=== PATIENT | female | born 1955 | race Caucasian/White ===

== ENCOUNTER 2017-12-19 13:34 | Emergency (ER) | payer OTHER ==
[~2017-12-19] VITALS: Ht 157.5 cm; Wt 117.9 kg
[~2017-12-19 13:34] MED LIST: AMLODIPINE BESY10 MG PO; BACTRIM DS TAB1 EACH PO; BUPROPION XL150 MG PO; CEFDINIR300 MG PO; COLACE100 MG PO; FLUOXETINE HCL20 MG PO; GABAPENTIN300 MG PO; LANTUS100 UNITS/ SQ; LISINOPRIL2.5 MG PO; LISINOPRIL40 MG PO; NORCO 10-325 T1 EACH; PRANDIN0.5 MG PO; PREDNISONE10 MG PO; PROPRANOLOL HCL80 MG PO; QUETIAPINE FUMA25 MG PO; TRILIPIX135 MG PO; TYLENOL WITH C1 EACH PO; VENTOLIN HFA18 GM IH; VYTORIN 10-401 EACH PEG; VYTORIN 10-401 EACH PO
[2017-12-19 15:57] LABS: BASOPHILS % 0.5 % (0.0-1.0); EOSINOPHILS # (AUTO) 0.3 (0.0-0.4); EOSINOPHILS % 3.7 % (0.0-6.0); HEMATOCRIT 32.9 % (34.2-44.1); HEMOGLOBIN 10.5 g/dL (12.0-16.0); LYMPHOCYTES # (AUTO) 2.4 (1.0-3.2); LYMPHOCYTES % 31.4 % (18.0-39.1); MEAN CORPUSCULAR HEMOGLOBIN 28.6 pg (28-32); MEAN CORPUSCULAR HGB CONC 31.9 g/dL (31-35); MEAN CORPUSCULAR VOLUME 89.6 fL (81-99); MONOCYTES # (AUTO) 0.7 (0.2-0.8); MONOCYTES % 9.2 % (4.4-11.3); NEUTROPHILS # (AUTO) 4.1 (2.1-6.9); NEUTROPHILS % 54.1 % (38.7-80.0); PLATELET COUNT 333 x10e3/uL (140-360); RED BLOOD COUNT 3.67 x10e6/uL (3.6-5.1); RED CELL DISTRIBUTION WIDTH 12.5 % (11.7-14.4)
[2017-12-19 16:06] LABS: ALBUMIN 3.8 g/dL (3.5-5.0); ANION GAP 19.9 mmol/L (8-16); CALCIUM 10.1 mg/dL (8.4-10.2); CREATININE, SERUM 2.15 mg/dL (0.57-1.11); POTASSIUM 4.9 mmol/L (3.5-5.1)
[2017-12-19 16:47] LABS: BILIRUBIN,URINE NEGATIVE (NEGATIVE); CLARITY,URINE SL CLOUDY (CLEAR); COLOR,URINE YELLOW (YELLOW); KETONES,URINE NEGATIVE (NEGATIVE); LEUKOCYTE ESTERASE ,URINE TRACE (NEGATIVE); NITRITE,URINE NEGATIVE (NEGATIVE); PROTEIN,URINE DIPSTICK NEGATIVE (NEGATIVE); URINE UROBILINOGEN 0.2 mg/dL (0.2 - 1)
[2017-12-19 17:01] LABS: EPITHELIAL CELLS,URINE FEW /LPF; WBC,URINE (MAN) 0-5 /HPF (0-5)
[2017-12-19] MEDS ORDERED: ALLOPURINOL100 MG PO (17:51)
[2017-12-19] MEDS ORDERED: LASIX40 MG PO (17:51)
[2017-12-19] MEDS ORDERED: LEVEMIR100 UNIT/1 SC (17:51)
[2017-12-19 18:07] LABS: ABG HCO3 33 mmol/L (23-28); ABG PCO2 53 mmHg (41-51); ABG PH 7.41 (7.31-7.41); ABG PO2 70 mmHg (80-105)
[2017-12-19 19:22] VITALS: BP 110/74
[2017-12-19] MEDS ORDERED: INDERAL LA80 MG PO (19:22)
== END 2017-12-19 19:28 | disposition home or self-care (01) ==
LOC: ER 13:34
DX: R41.82 Altered mental status, unspecified (principal); J96.12 Chronic respiratory failure with hypercapnia; I10 Essential (primary) hypertension; J44.9 Chronic obstructive pulmonary disease, unspecified; I50.9 Heart failure, unspecified; Z99.81 Dependence on supplemental oxygen
CPT/HCPCS: 36415; 80053; 81001; 82140; 82805; 84443; 85025; 99284

== ENCOUNTER 2017-12-20 08:36 | Emergency (ER) | payer OTHER ==
[~2017-12-20] VITALS: Ht 157.5 cm; Wt 117.9 kg
[~2017-12-20 08:36] MED LIST changes: +ALLOPURINOL100 MG PO; +INDERAL LA80 MG PO; +LASIX40 MG PO; +LEVEMIR100 UNIT/1 SC
[2017-12-20] MEDS ORDERED: DIAZEPAM 2 MG TAB PO ONE (09:30)
--- NOTE | 2017-12-20 10:04 | Diagnostic Imaging Report ---
EXAMINATION: Head CT HISTORY: Slurred speech, hallucinations for the last 2 days COMPARISON: Head CT on 09/16/2016 TECHNIQUE: Multidetector axial images were obtained without contrast from the foramen magnum to the vertex . The images were reconstructed using brain and bone algorithms. Thin section brain images were reformatted into coronal and sagittal planes. Intravenous contrast: None. Motion/streaking artifact limits the evaluation of the skull base and posterior cranial fossa. FINDINGS: Parenchyma: 1. Persistent mild chronic microvascular ischemic changes. 2. No mass or hemorrhage. No CT evidence of acute territorial vascular insult. Extra-axial spaces:No abnormal density. No extra-axial fluid collections and no subarachnoid hemorrhage. Brain volume: Normal for age. Ventricles: No hydrocephalus or displacement. Arteries: No density suggestive of thrombus. Dural sinuses: No abnormal density. Extra-axial spaces: No abnormal density. Foramen magnum: No mass, Chiari malformation, or basilar invagination. Sella: No obvious mass. Paranasal/mastoid sinuses: Imaged portions unremarkable. Skull/Scalp: No lytic or blastic lesions. No fractures. Partially visualized postoperative changes from right parotid gland previously seen mass resection. IMPRESSION: 1. No acute intracranial hemorrhage or cortical infarcts. 2. Unchanged mild chronic microvascular ischemic changes compared to head CT on 09/15/2016. Signed by: Dr. Judy Farfan M.D. on 12/20/2017 10:00 AM
[2017-12-20 10:35] VITALS: BP 110/62
== END 2017-12-20 11:02 | disposition home or self-care (01) ==
LOC: ER 08:36
DX: F41.1 Generalized anxiety disorder (principal); R44.3 Hallucinations, unspecified; I10 Essential (primary) hypertension; E11.9 Type 2 diabetes mellitus without complications; J44.9 Chronic obstructive pulmonary disease, unspecified; F32.9 Major depressive disorder, single episode, unspecified; Z85.89 Personal history of malignant neoplasm of other organs and systems
CPT/HCPCS: 70450; 99283

== ENCOUNTER 2017-12-23 15:00 | Inpatient (IN) | payer OTHER ==
[~2017-12-23] VITALS: Ht 157.5 cm; Wt 98.7 kg
[2017-12-23 17:07] LABS: BASOPHILS % 0.5 % (0.0-1.0); EOSINOPHILS # (AUTO) 0.1 (0.0-0.4); EOSINOPHILS % 1.4 % (0.0-6.0); HEMATOCRIT 30.7 % (34.2-44.1); LYMPHOCYTES # (AUTO) 1.3 (1.0-3.2); LYMPHOCYTES % 14.6 % (18.0-39.1); MEAN CORPUSCULAR HEMOGLOBIN 29.2 pg (28-32); MEAN CORPUSCULAR HGB CONC 32.6 g/dL (31-35); MEAN CORPUSCULAR VOLUME 89.8 fL (81-99); MONOCYTES # (AUTO) 0.6 (0.2-0.8); MONOCYTES % 6.7 % (4.4-11.3); NEUTROPHILS # (AUTO) 6.5 (2.1-6.9); NEUTROPHILS % 76.1 % (38.7-80.0); PLATELET COUNT 279 x10e3/uL (140-360); RED BLOOD COUNT 3.42 x10e6/uL (3.6-5.1)
[2017-12-23 17:11] LABS: INR 1.06
[2017-12-23 17:18] LABS: ALBUMIN 3.6 g/dL (3.5-5.0); ALBUMIN/GLOBULIN RATIO 1.1 (0.8-2.0); ANION GAP 13.7 mmol/L (8-16); CALCIUM 9.7 mg/dL (8.4-10.2); CREATININE, SERUM 2.34 mg/dL (0.57-1.11); POTASSIUM 4.7 mmol/L (3.5-5.1)
[2017-12-23 17:25] LABS: CREATINE KINASE MB 1.2 ng/mL (0-5.0)
[2017-12-23] MEDS ORDERED: ONDANSETRON HCL INJ 2 MG/ML VIAL IV PRN (17:30)
[2017-12-23] MEDS ORDERED: DIAZEPAM5 MG PO (18:13)
[2017-12-23] MEDS ORDERED: TYLENOL WITH C1 EACH PO (18:13)
[2017-12-23] MEDS ORDERED: magnesium PO (18:13)
--- NOTE | 2017-12-23 20:52 | Diagnostic Imaging Report ---
PROCEDURE: A single AP view of the chest. COMPARISON: None. INDICATIONS: AMS. HALLUCINATIONS FINDINGS: Lines/tubes: None. Lungs: The lungs are well inflated and clear. There is no evidence of pneumonia or pulmonary edema. Pleura: There is no pleural effusion or pneumothorax. Heart and mediastinum: Mild enlarged cardiac silhouette, which may be partly due to AP projection. Pulmonary vasculature is normal. Bones: No acute bony abnormality. IMPRESSION: 1. No acute cardiopulmonary abnormalities. Sheldon Boyd M.D. Dictated by: Sheldon Boyd M.D. on 12/23/2017 at 18:50 Electronically approved by: Sheldon Boyd M.D. on 12/23/2017 at 18:50
[2017-12-23 21:32] VITALS: BP 137/62
[2017-12-23] MEDS ORDERED: DEXTROSE 50% SYRINGE 50 ML IV PRN (22:00)
[2017-12-23] MEDS ORDERED: ALLOPURINOL 100 MG TAB PO PRN (22:00)
[2017-12-23] MEDS ORDERED: ACETAMINOPHEN/CODEINE 300MG - 30MG TAB PO PRN (22:00)
[2017-12-23] MEDS ORDERED: ALBUTEROL SULFATE HFA 8GM INHALATION AEROSOL INH PRN (22:00)
[2017-12-23] MEDS ORDERED: FUROSEMIDE 40 MG TAB PO PRN (22:00)
[2017-12-23] MEDS ORDERED: DIAZEPAM 5 MG TAB PO PRN (22:00)
[2017-12-23] MEDS ORDERED: PREDNISONE 10 MG TAB PO PRN (22:00)
[2017-12-23] MEDS: BUPROPION HCL 150 MG TABCR PO SCH (22:30)
[2017-12-23 23:56] VITALS: BP 137/62
[2017-12-23 23:59] VITALS: BP 105/63
[2017-12-24 02:35] VITALS: BP 105/63
[2017-12-24 04:00] VITALS: BP 139/71
[2017-12-24] MEDS ORDERED: INSULIN REGULAR, HUMAN 100 UNIT/1 ML 3ML VIAL SQ SCH (07:30)
[2017-12-24 07:45] VITALS: BP 118/57
[2017-12-24] MEDS ORDERED: DIAZEPAM 2 MG TAB PO PRN (08:30)
[2017-12-24] MEDS: BUPROPION HCL 150 MG TABCR PO SCH (08:43)
[2017-12-24] MEDS: FLUOXETINE HCL 20 MG CAP PO SCH (08:43)
[2017-12-24] MEDS ORDERED: AMLODIPINE BESYLATE 10 MG TAB PO SCH (09:00)
[2017-12-24] MEDS ORDERED: MAGNESIUM 1000 MG PO SCH (09:00)
[2017-12-24] MEDS ORDERED: NON-FORMULARY MEDICATION (Ezetimibe/Simvastatin (Vytorin 10-40 Mg Tablet) 1 TAB) PO SCH (09:00)
[2017-12-24] MEDS ORDERED: LISINOPRIL 2.5 MG TAB PO SCH (09:00)
[2017-12-24] MEDS ORDERED: QUETIAPINE FUMARATE 25 MG TAB PO SCH (09:00)
[2017-12-24] MEDS: PROPRANOLOL HCL 40 MG TAB PO SCH (09:07)
[2017-12-24] MEDS: MAGNESIUM OXIDE 400 MG TAB PO SCH (09:08)
[2017-12-24 09:40] VITALS: BP 118/57
[2017-12-24] MEDS ORDERED: DEXTROSE 50% SYRINGE 50 ML IV PRN (10:00)
[2017-12-24] MEDS: ALLOPURINOL 100 MG TAB PO SCH ×2 (10:36→16:37)
[2017-12-24 10:38] LABS: ABG HCO3 32 mmol/L (23-28); ABG PCO2 50 mmHg (41-51); ABG PH 7.41 (7.31-7.41); ABG PO2 92 mmHg (80-105)
--- NOTE | 2017-12-24 11:08 | History and Physical ---
PRIMARY CARE PHYSICIAN: Dr. Andres Josue ROCKET ENGINE TESTER: Dr. Jonah Cox and Dr. Gutierrez. CHIEF COMPLAINT: Altered mental status, multiple ER visits. HISTORY: This is a 62-year-old female who approximately a week to 2 ago patient apparently fell and hit her right knee. No obvious fractures but since then the patient having increase in altered mental status, hallucinations, usually visual, worse in the morning and then subsequently throughout the day. Patient also had delusions as well with increasingly more paranoia. The patient has history of renal cell cancer with metastases. She had left nephrectomy and then subsequent right partial nephrectomy and she also had neck and facial metastases that was previously treated with surgical intervention and subsequent chemotherapy. The patient was well until approximately 1 to 2 weeks ago after she fell and hit her right knee. The patient is otherwise stable. Patient is now admitted through the emergency room again with more confusion, hallucinations and not recognizing family member. The patient was started on Keflex as an outpatient approximately 2 days ago. She did not improve. PAST MEDICAL HISTORY: Renal cell cancer with metastasis. She had left nephrectomy and right partial nephrectomy and neck and facial metastasis post surgical intervention. Diabetes type 2, hypertension, morbid obesity, obstructive sleep apnea, anxiety disorder and depression. PAST SURGICAL HISTORY: Left nephrectomy and right partial nephrectomy. Right facial gland, submandibular gland, facial, neck area metastasis, status post treatment. SOCIAL HISTORY: Patient lives at home with her family.. She does not smoke or use alcohol or recreational drugs. ALLERGIES: MULTIPLE INCLUDING LEVAQUIN, NONSTEROIDALS, ANTI-INFLAMMATORIES, IODINE CONTRAST, ADHESIVE TAPE. HOME MEDICATIONS: Tylenol No. 3 p.r.n., , allopurinol, Norvasc, bupropion SL, Diazepam, Vytorin, Prozac, Lasix, Levemir insulin, lisinopril, prednisone p.r.n., propranolol, Seroquel. PHYSICAL EXAMINATION: GENERAL: The patient is in no acute distress. She is awake. VITAL SIGNS: Temperature is 98. Blood pressure 113/61. Pulse rate 71. Respirations 21. HEENT: Normocephalic, atraumatic and anicteric. NECK: Supple grossly. PULMONARY: Diminished breath sounds bilaterally without any wheezing or rales. CARDIOVASCULAR: S1 and S2. Regular rate and rhythm. ABDOMEN: Soft, obese, nontender, nondistended. EXTREMITIES: No gross cyanosis or edema. NEUROLOGIC: Very confused. Moving all extremities. LABORATORY: WBC is 5.5. Hemoglobin 10. Hematocrit 30.7 and platelets 279,000. Chemistries: Sodium is 138. Potassium 4.7, chloride 99, bicarb 30. BUN is 36, creatinine 2.3. Glucose is 246. Coagulation is unremarkable. IMAGING: Chest x-ray. Previously CT scan of brain otherwise unremarkable. IMPRESSION: 1. Acute psychosis, etiology unclear. This would be combination of patient's history of renal cell cancer versus metabolic disorder versus infection or cranial etiology. 2. Baseline multiple problems including renal cell cancer with history of left radical nephrectomy and right partial nephrectomy with chronic kidney disease. 3. Diabetes type 2 on insulin therapy. 4. Hypertension. 5. Obesity with obstructive sleep apnea. 6. Osteoarthritis. PLAN: Consultation with Dr. Gutierrez, neurology. Dr. Jonah Cox for pulmonology. ABG for ruling out CO2 retention. Home medication adjustment. Fall precautions. Imaging was ordered including MRI of the brain, abdomen and pelvis. Will continue with supportive measures. Insulin sliding scale coverage. Blood pressure control. Oxygen support. Will continue to work up the patient and will admit the patient for workup and treatment. This is his 3rd admission through the emergency room in the past 1-2 weeks. Job#: [id number] SERGE
[2017-12-24 11:17] VITALS: BP 128/61
[2017-12-24] MEDS ORDERED: ALBUTEROL SULF 0.083% NEB SOLN 3 ML NEB NEB PRN (11:45)
[2017-12-24] MEDS ORDERED: LORAZEPAM INJ 2 MG/ML VIAL IV ONE (13:00)
--- NOTE | 2017-12-24 13:19 | Diagnostic Imaging Report ---
EXAM: MRI of the abdomen without contrast. INDICATION: Altered mental status. Renal cancer. COMPARISON: 01/02/2010 MRIs not available for comparison in PACS. TECHNIQUE: Multiplanar and multisequence imaging was performed of the abdomen. T1 and T2-weighted images were obtained without contrast. Diffusion weighted imaging also performed. Discussion: Examination markedly limited due to image limitation by breathing motion artifact. Patient was not able to breath-hold. LOWER THORAX: Unremarkable. HEPATOBILIARY: Signal drop out of the hepatic parenchyma on the T1-weighted out of phase scans suggestive of steatosis. No definite focal hepatic lesions. No biliary ductal dilation. GALLBLADDER: No radio-opaque stones or sludge. No wall thickening. SPLEEN: No splenomegaly. PANCREAS: No focal masses or ductal dilatation. ADRENALS: No adrenal nodules KIDNEYS/URETERS: Redemonstration of status post left nephrectomy without definite mass in the nephrectomy bed. 2.0 cm T2 hyperintense lesion in the lateral interpolar region of the right kidney on image 23 series 6 is of indeterminate etiology. A 5 mm T2 hyperintense lesion in the posterior lower pole of the right kidney on image 27 series 6 is likely to represent a small cyst. GI TRACT: No abnormal distention, wall thickening, or evidence of bowel obstruction. Appendix is normal. LYMPH NODES: No lymphadenopathy. VESSELS: Unremarkable. PERITONEUM / RETROPERITONEUM: No free air or fluid. BONES: Unremarkable. SOFT TISSUES: Unremarkable. Impression: Examination limited due to extensive breathing motion artifact and lack of intravenous contrast. Status post left nephrectomy. No evidence of recurrence within limitations. Indeterminate right renal lesions. Recommend repeat examination once patient's mental status improves and she is able to breath-hold. Signed by: Dr. Osmany Bartlett M.D. on 12/24/2017 1:16 PM
[2017-12-24] MEDS: INSULIN LISPRO 100 UNIT/1 ML 3ML VIAL SQ SCH ×3 (13:54→21:00)
[2017-12-24] MEDS: CEFEPIME HCL 1 GM VIAL IV SCH ×2 (13:54→22:15)
--- NOTE | 2017-12-24 14:09 | Consultation ---
DATE OF CONSULTATION: December 24, 2017 PULMONARY/CRITICAL CARE CONSULTATION REFERRING PHYSICIAN: Dr. Andres Josue. CHIEF COMPLAINT: Metabolic encephalopathy in a patient with COPD and pulmonary hypertension. HISTORY OF PRESENT ILLNESS: The patient is a 62-year-old woman. She has a history of COPD. She uses oxygen at home. She has a nebulizer that she uses intermittently. She also has history of renal cell carcinoma. She had a nephrectomy performed at [facility] by Dr. Sheppard. She subsequently developed a metastasis in a parotid gland and required resection at [facility] (formerly [facility] She has not received any chemotherapy or radiation. Approximately 2 weeks ago she became unsteady and fell. She hit her knee and went to the emergency department. She did receive some nonsteroidal medicines and prednisone, but continued to be confused over the next several weeks. She went back to the emergency department and received some neuroleptics with no benefit. She now returns with worsening confusion and delusions. She is not complaining of fever. She does not have chest pain or dyspnea. She does not have any change in her chronic cough. PAST SURGICAL HISTORY: 1. Status post left nephrectomy. 2. Status post partial right nephrectomy. 3. Status post resection of a parotid gland for metastatic renal cell carcinoma. PAST MEDICAL HISTORY: 1. Renal cell carcinoma as noted above. 2. COPD. 3. Diabetes. 4. Hypertension. 5. Possible obstructive sleep apnea, although the patient has never had a sleep study. FAMILY HISTORY: Noncontributory. SOCIAL HISTORY: The patient is not actively smoking. She is not a drinker. She lives with family. ALLERGIES: LEVAQUIN, CONTRAST DYE. REVIEW OF SYSTEMS: The patient does not have any headache or fevers. She does not have any neck pain. She is not having chest pain. She does have some dyspnea at baseline which is unchanged. She has a mild cough. She has no nausea or vomiting. She has no leg edema. She is not having any cyanosis or clubbing. She does not report any leg swelling. She has no neurological complaints. PHYSICAL EXAMINATION: VITAL SIGNS: The patient is afebrile. The blood pressure is 128/61 and saturation is 96% on 2 liters. Her pulse is 83. HEENT: Shows no facial swelling or erythema. The oropharynx is normal. LYMPHATIC: Examination shows no submandibular, cervical or supraclavicular adenopathy. CARDIAC: Exam reveals a regular rate and rhythm with normal S1 and S2. There are no murmurs or rubs. LUNGS: Shows clear breath sounds bilaterally. There is no wheezing. ABDOMEN: Is soft and nontender. There is no rebound or guarding. EXTREMITIES: Examination shows no leg edema or calf tenderness. There is no cyanosis or clubbing. NEUROLOGIC: Exam shows no focal abnormalities. SKIN: Examination shows no rashes. LABORATORY DATA: The BUN to creatinine ratio is 36 to 2.34. The other electrolytes are within normal limits. Hemoglobin is 10. Blood gas is 7.41, 50, 92 and 32. RADIOGRAPHIC DATA: The chest x-ray shows no active disease. A CT scan from 2016 showed enlarged pulmonary artery suggestive of possible pulmonary artery hypertension. IMPRESSION: 1. Metabolic encephalopathy. 2. Chronic obstructive pulmonary disease with chronic CO2 retention. 3. Type 2 pulmonary artery hypertension. 4. Possible obstructive sleep apnea. 5. Chronic renal failure stage 3 to 4. 6. History of metastatic renal cell carcinoma. PLAN: 1. The patient will continue to receive oxygen. 2. Bronchodilators as needed. 3. Echocardiogram to evaluate for pulmonary hypertension. 4. Ventilation perfusion scan to evaluate for chronic pulmonary emboli. 5. Evaluation for sleep apnea as an outpatient. Job#: [id number] GH
--- NOTE | 2017-12-24 17:12 | Consultation ---
DATE OF CONSULTATION: December 24, 2017 NEUROLOGY CONSULTATION HISTORY OF PRESENT ILLNESS: Mrs. Awan is a 62-year-old woman with an extensive past medical history, admitted to [facility] on December 23, 2017 with a 2-week history of progressively worsening confusion, visual hallucinations, and delirium. History is obtained from the patient's who is at the bedside secondary to Mrs. Awan being encephalopathic. Approximately 2 weeks ago, the patient fell forward landing on her knees. The patient's states Mrs. Awan did not report hitting her head when she fell. Two days after the fall, the patient consented to her taking her to a [facility] emergency center for further evaluation of bilateral knee pain. All diagnostic studies performed at the [facility] emergency center were reportedly normal. Mrs. Awan was discharged to the emergency center with Tylenol for pain and a 4 to 5 day course of oral steroids. Once she began taking the steroids, Mrs. Awan had worsening confusion, visual hallucinations, and delirium. Her reports she spoke to relatives, living and , who were not present. She became verbally aggressive towards her children and grandchildren. She saw several kittens lying in near her dog and told various family members her dog was "kitten sitting." Her has observed her to chew on her blanket. She has walked to the entertainment center in their living room to chop an onion. Lastly, the patient's reports she has not slept well. When asked if these symptoms seem to improve once the patient completed the 4 or 5 day course of steroids, patient's reports her symptoms have gradually worsened, not improved. Mrs. Awan's reports she has experienced similar symptoms previously, usually associated with acute kidney injury, hyponatremia or hyperkalemia. For approximately one and a half weeks, the patient's took her to various emergency centers for evaluation of her symptoms. Blood work and CT scans were performed, all reportedly normal. When the test results returned as normal, the patient would be discharged from the emergency center. On the day of admission, the patient was taken to her primary care physician, Dr. Josue, who recommended the patient be admitted to this hospital for further evaluation and treatment. REVIEW OF SYSTEMS: Nonproductive cough, intermittent nausea, intermittent diarrhea and constipation, urinary retention, numbness of the feet, impaired balance and gait, confusion, visual hallucinations, and delirium. Otherwise, a 12-point review of systems is negative. PAST MEDICAL HISTORY: Hypertension, hyperlipidemia, diabetes mellitus type 2, emphysema, possible history of thyroid disease, osteoarthritis, chronic kidney disease, mixed depression/anxiety disorder, questionable bipolar disorder, migraines, one prior seizure secondary to alcohol withdrawal, breast cancer, renal cancer with metastases. PAST SURGICAL HISTORY: Left nephrectomy, right partial nephrectomy, right parotid gland resection, bilateral hip replacements, left breast lumpectomy, umbilical hernia repair. PAST HOSPITALIZATIONS: Surgeries/procedures as listed, childbirth times 3, multiple other hospitalizations. FAMILY HISTORY: The patient's paternal and maternal grandparents are . Their medical histories are unknown. The patient patient's father is . He had colon cancer and emphysema. The patient's mother is . Her medical history is unknown. Mrs. Awan had one brother who is from a motor vehicle accident. He had a history of bipolar disorder and substance abuse. Mrs. Awan has multiple half siblings, several of whom have bipolar disorder or other psychiatric diagnoses. The patient had six children, three boys and three girls. The youngest son at the age of 7 years in a motor vehicle accident. The remaining five children are alive. All have "psychiatric issues." SOCIAL HISTORY: Patient is . She graduated high school. The patient is a housewife. The patient's endorses a prior history of tobacco use. She smoked 2-1/2 packs per day for approximately 40 years. She quit smoking about 10 years ago. Patient does have a history of alcohol abuse. At present, she is a "social drinker." She drinks approximately 2 glasses of wine most days of the week. HOME MEDICATIONS: Acetaminophen with codeine 300 mg by mouth every 4 hours as needed for pain, Ventolin HFA 2 puffs inhaled every 4 hours as needed for shortness breath, allopurinol 100 mg by mouth twice daily as needed, Norvasc 10 mg by mouth daily, bupropion 150 mg by mouth twice daily, diazepam 5 mg by mouth daily as needed, Vytorin 10-40 mg one tablet by mouth daily, fluoxetine 40 mg by mouth daily, Lasix 40 mg by mouth as needed, Levemir 30 units subcutaneously at bedtime daily, lisinopril 2.5 mg by mouth daily, prednisone 10 mg by mouth daily as needed, Inderal LA 40 mg by mouth daily, Seroquel 75 mg by mouth daily, magnesium 1,000 mg by mouth daily. ALLERGIES: NSAIDS, POSSIBLY BARIUM, LEVOFLOXACIN. NO KNOWN FOOD ALLERGIES. MRS. AWAN HAS A SENSITIVITY TO ADHESIVE TAPE. PATIENT DOES HAVE A DOCUMENTED ALLERGY TO IODINE. PHYSICAL EXAMINATION VITAL SIGNS: Height 62 inches, weight 216 pounds, BMI 39.5 kg per meter squared. Blood pressure 128/61 mmHg, pulse 83 beats per minute, respiratory rate 20 breaths per minute, oxygen saturation 96% on 2 liters by nasal cannula. GENERAL: The patient is drowsy but arouses to verbal stimuli. Does not appear distressed. Morbidly obese. HEENT: Normocephalic, atraumatic. Pupils are equal, round and reactive to light. Moist mucous membranes. NECK: Supple. No appreciable thyromegaly. No appreciable carotid bruits. CARDIOVASCULAR: S1, S2, regular rate and rhythm. No murmurs, rubs, or gallops. RESPIRATORY: Clear to auscultation bilaterally. No wheezes, rhonchi or rales. EXTREMITIES: The skin is warm and dry. No clubbing, cyanosis, or edema. The posterior tibial and dorsalis pedis pulses are 1+ and symmetric. SKIN: No rashes or lesions. NEUROLOGIC Memory/Attention: The patient is drowsy, but arouses to verbal stimuli. She is oriented to person and city only. Cranial Nerves: Cranial nerve I-not tested. Cranial nerve II, III, IV, and -pupils are equal and round, react briskly to light (from 4 mm to 2 mm). Extraocular movements intact. No nystagmus. Cranial nerve V-sensation to light touch is grossly intact in the bilateral V1 through V3 distributions. Strength of the temporalis and masseter muscles is within normal limits. Cranial nerve VII-the face is symmetric as are all facial movements. Strength is within normal limits. Cranial nerve VIII-hearing is grossly intact to finger rub bilaterally. Cranial nerve IX, X-the soft palate elevates equally and symmetrically. Cranial nerve XI-normal strength of the bilateral sternocleidomastoid and trapezius muscles. Cranial nerve XII-the tongue protrudes midline and moves symmetrically from side to side. Strength: Bulk is normal. Patient moves all extremities equally and symmetrically. Tone is normal. DTRs: Deep tendon reflexes are 1+ and symmetric at the triceps, biceps, brachioradialis, and patellas. Deep tendon reflexes are absent and symmetric at the Achilles. Plantar responses are flexor bilaterally. Sensation: Sensation is grossly intact to light touch in both arms and both legs. Cerebellar: Unable to assess secondary to encephalopathy. Gait: Deferred. Speech: Spontaneous speech is dysarthric without aphasia. Unable to assess repetition secondary to encephalopathy. Involuntary Movements: None. Pronator Drift: As per motor exam. LABORATORY DATA: Sodium 138, potassium 4.7, chloride 99, carbon dioxide 30, anion gap 13.7. BUN 36, creatinine 2.34. Estimated GFR 21. BUN to creatinine ratio 15. Glucose 246, calcium 9.7, total bilirubin 0.6, AST 19, ALT 17, alkaline phosphatase 78, total protein 6.9, albumin 3.6, globulin 3.3. Albumin to globulin ratio 1.1. Creatinine kinase 166, CK-MB 1.20. Troponin I 0.010. B-natriuretic peptide 87.5. Magnesium 2.2. CBC with differential and platelets reveals a white blood cell count of 8.55 with 76.1% neutrophils, 14.6% lymphocytes, 6.7% monocytes, 1.4% eosinophils and 0.5% basophils. Hemoglobin and hematocrit are 10.0 and 30.7, respectively. Platelet count 279. PT 13.0, INR 1.06, PTT 26.0. Arterial blood gas reveals pH of 7.41, pCO2 50, pO2 of 92, bicarbonate of 32, oxygen saturation of 97.0, base excess of 7.0, FIO2 of 28%. DIAGNOSTIC STUDIES: Electrocardiogram 12/23/2017: Normal sinus rhythm at 83 beats per minute. Chest x-ray 12/23/2017: No acute cardiopulmonary abnormalities. MRI of the abdomen without contrast 12/24/2017: Examination limited due to extensive breathing motion artifact and lack of intravenous contrast. Status post left nephrectomy. No evidence of recurrence within limitations. Indeterminate right renal lesions. Recommend repeat examination once patient's mental status improves and she is able to breath hold. ASSESSMENT AND PLAN: Mrs. Awan is a 62-year-old woman with an extensive past medical history admitted with a 2-week history of altered mentation, visual hallucinations and delusions. On neurological examination, the patient is drowsy. She is oriented to person and city only. Otherwise, there are no focal findings on neurological examination. The patient's laboratory data and other diagnostic studies have been reviewed and are documented above. The etiology of the patient's symptoms is undetermined. Potential causes could be acute kidney injury, underlying infection, metastatic disease to the brain, seizures, or medication-induced psychosis (i.e. Prednisone). RECOMMENDATIONS 1. Additional laboratory data will be ordered as follows: Thyroid function tests, vitamin B1 level, vitamin B12 level, RPR, ammonia, blood cultures, urinalysis with urine culture, urine drug screen, blood alcohol level. 2. An MRI of the brain without contrast has been ordered and is pending. The patient will require sedation to complete this study. 3. A routine EEG will be ordered to evaluate for underlying seizure activity. 4. Continue the patient's home psychotropic medications. 5. Limit the use of sedative/hypnotic and pain medications as these will alter the patient's sensorium. 6. Utilize environmental cues to limit delirium. 7. Defer treatment of the remaining medical comorbidities to the primary and other services. Thank you for this consultation. I will continue to follow this patient while she remains in the hospital. Time spent: 70 minutes. Job#: [id number] JESSIE SHAH
--- NOTE | 2017-12-24 17:42 | Diagnostic Imaging Report ---
Ventilation/perfusion lung scan Clinical Information: 62 F with altered metal status and chest pain. Comparison: Chest radiograph 12/23/2017 Discussion: Xenon-133 gas 19 mCi was administered via inhalation. Dynamic images of the lungs in the posterior projection were obtained through single breath, equilibrium, and washout phases. Distribution of tracer activity is irregular throughout the lungs. There are no segmental ventilatory defects. Washout of tracer is diffusely delayed with no air trapping. Perfusion images of the lungs were obtained in multiple projections following intravenous administration of approximately 6 mCi of Tc-99m MAA. Distribution of tracer is irregular throughout the lungs. The contours of the lungs are well demarcated. There are no segmental perfusion defects of any size. The cardiomediastinal silhouette is enlarged. Images of the head and kidneys show no intraparenchymal accumulation of tracer. Impression: 1. Scan findings represent a VERY LOW probability for acute pulmonary embolic disease based on the PIOPED II criteria. Scan evidence of obstructive lung disease. 2, Enlarged cardiac silhouette. 3. No [id number] shunt. Signed by: Dr. Alexa Romano M.D. on 12/24/2017 5:39 PM
[2017-12-24 19:55] LABS: THYROID STIMULATING HORMONE 2.014 uIU/mL (0.350-4.940)
[2017-12-24] MEDS: INSULIN DETEMIR 100 UNIT/ML PEN SQ SCH (21:00)
[2017-12-24] MEDS ORDERED: SIMVASTATIN 40 MG TAB PO SCH (21:00)
[2017-12-24] MEDS ORDERED: EZETIMIBE 10 MG TAB PO SCH (21:00)
[2017-12-24] MEDS ORDERED: NON-FORMULARY MEDICATION (Insulin Detemir (Levemir) 30 UNITS) SC SCH (21:00)
[2017-12-24] MEDS: QUETIAPINE FUMARATE 25 MG TAB PO SCH (22:15)
[2017-12-24 22:40] VITALS: BP 113/70
[2017-12-25] VITALS (7 sets, daily range): BP systolic 113–147; BP diastolic 63–70
[2017-12-25] MEDS: PROPRANOLOL HCL 40 MG TAB PO SCH (08:30)
[2017-12-25] MEDS: ALLOPURINOL 100 MG TAB PO SCH ×2 (08:30→17:15)
[2017-12-25] MEDS: MAGNESIUM OXIDE 400 MG TAB PO SCH (08:30)
[2017-12-25] MEDS: INSULIN LISPRO 100 UNIT/1 ML 3ML VIAL SQ SCH ×4 (08:30→20:53)
[2017-12-25] MEDS: FLUOXETINE HCL 20 MG CAP PO SCH (08:30)
[2017-12-25 08:58] LABS: AMPHETAMINES SCREEN,URINE NEGATIVE (NEGATIVE); BENZODIAZEPINES SCREEN,URINE POSITIVE (NEGATIVE); PHENCYCLIDINE SCREEN,URINE NEGATIVE (NEGATIVE)
[2017-12-25 10:26] LABS: CLARITY,URINE SL CLOUDY (CLEAR); COLOR,URINE YELLOW (YELLOW)
[2017-12-25 10:27] LABS: BILIRUBIN,URINE 2+ (NEGATIVE); KETONES,URINE 1+ (NEGATIVE); LEUKOCYTE ESTERASE ,URINE NEGATIVE (NEGATIVE); NITRITE,URINE NEGATIVE (NEGATIVE); PROTEIN,URINE DIPSTICK TRACE (NEGATIVE); URINE UROBILINOGEN 0.2 mg/dL (0.2 - 1)
[2017-12-25 10:31] LABS: EPITHELIAL CELLS,URINE FEW /LPF
[2017-12-25] MEDS: CEFEPIME HCL 1 GM VIAL IV SCH ×2 (10:44→22:46)
[2017-12-25] MEDS: ALBUTEROL SULF 0.083% NEB SOLN 3 ML NEB NEB SCH (20:45)
[2017-12-25] MEDS: INSULIN DETEMIR 100 UNIT/ML PEN SQ SCH (20:53)
[2017-12-25] MEDS: QUETIAPINE FUMARATE 25 MG TAB PO SCH (22:46)
[2017-12-26] VITALS (8 sets, daily range): BP systolic 113–144; BP diastolic 55–67
[2017-12-26] MEDS: ALBUTEROL SULF 0.083% NEB SOLN 3 ML NEB NEB SCH ×4 (01:01→19:55)
[2017-12-26 04:24] LABS: BASOPHILS # (AUTO) 0.1 (0.0-0.1); BASOPHILS % 0.8 % (0.0-1.0); EOSINOPHILS # (AUTO) 0.2 (0.0-0.4); EOSINOPHILS % 2.8 % (0.0-6.0); HEMATOCRIT 31.6 % (34.2-44.1); HEMOGLOBIN 9.6 g/dL (12.0-16.0); LYMPHOCYTES # (AUTO) 2.1 (1.0-3.2); LYMPHOCYTES % 27.7 % (18.0-39.1); MEAN CORPUSCULAR HEMOGLOBIN 28.4 pg (28-32); MEAN CORPUSCULAR HGB CONC 30.4 g/dL (31-35); MEAN CORPUSCULAR VOLUME 93.5 fL (81-99); MONOCYTES # (AUTO) 0.9 (0.2-0.8); MONOCYTES % 11.3 % (4.4-11.3); NEUTROPHILS # (AUTO) 4.4 (2.1-6.9); NEUTROPHILS % 56.9 % (38.7-80.0); PLATELET COUNT 228 x10e3/uL (140-360); RED BLOOD COUNT 3.38 x10e6/uL (3.6-5.1); RED CELL DISTRIBUTION WIDTH 13.1 % (11.7-14.4)
[2017-12-26 04:50] LABS: ANION GAP 15.4 mmol/L (8-16); CALCIUM 9.4 mg/dL (8.4-10.2); CREATININE, SERUM 2.03 mg/dL (0.57-1.11); POTASSIUM 4.4 mmol/L (3.5-5.1)
[2017-12-26] MEDS: INSULIN LISPRO 100 UNIT/1 ML 3ML VIAL SQ SCH ×4 (07:30→21:00)
[2017-12-26] MEDS: PROPRANOLOL HCL 40 MG TAB PO SCH (09:00)
[2017-12-26] MEDS: ALLOPURINOL 100 MG TAB PO SCH ×2 (09:00→17:11)
[2017-12-26] MEDS: MAGNESIUM OXIDE 400 MG TAB PO SCH (09:00)
[2017-12-26] MEDS: FLUOXETINE HCL 20 MG CAP PO SCH (09:00)
[2017-12-26] MEDS: CEFEPIME HCL 1 GM VIAL IV SCH ×2 (11:56→21:54)
--- NOTE | 2017-12-26 13:59 | Diagnostic Imaging Report ---
EXAMINATION: MRI of the brain without contrast. HISTORY: Acute psychosis, altered mental status for the last 3 days COMPARISON: Head CT on 12/20/2017 TECHNIQUE: Sagittal T2; axial DWI, T2, FLAIR, T1-IR, T2 gradient echo; coronal FLAIR. IMAGE QUALITY: Adequate. FINDINGS: Parenchyma: 1. Scatter white matter T2 hyperintense foci, most likely nonspecific chronic microvascular ischemic changes. 2. No mass, hemorrhage, acute or chronic infarcts. Skull: Unremarkable. Vessels: Expected flow voids present in the major arteries and dural sinuses. Extra-axial spaces: No abnormal signal intensity or mass effect. Brain volume: Within normal limits for age. Ventricles: No hydrocephalus or displacement. Foramen magnum: Unremarkable. Sella: Unremarkable. Paranasal / mastoid sinuses: No significant inflammatory disease. IMPRESSION: 1. No acute infarcts, mass or hemorrhage. 2. Mild chronic microvascular ischemic changes. Signed by: Dr. Judy Farfan M.D. on 12/26/2017 1:56 PM
[2017-12-26] MEDS ORDERED: MIDAZOLAM HCL 2 MG/2 ML VIAL ONE (19:25)
[2017-12-26] MEDS ORDERED: FENTANYL CITRATE/PF 100MCG/2 ML INJ ONE (19:25)
[2017-12-26] MEDS: QUETIAPINE FUMARATE 25 MG TAB PO SCH (21:02)
[2017-12-26] MEDS: INSULIN DETEMIR 100 UNIT/ML PEN SQ SCH (21:05)
[2017-12-27] VITALS (7 sets, daily range): BP systolic 117–139; BP diastolic 57–63
[2017-12-27] MEDS: ALBUTEROL SULF 0.083% NEB SOLN 3 ML NEB NEB SCH ×4 (01:30→19:05)
[2017-12-27] MEDS: INSULIN LISPRO 100 UNIT/1 ML 3ML VIAL SQ SCH ×4 (07:30→20:55)
[2017-12-27] MEDS: CEFEPIME HCL 1 GM VIAL IV SCH ×2 (09:48→21:00)
[2017-12-27] MEDS: PROPRANOLOL HCL 40 MG TAB PO SCH (09:48)
[2017-12-27] MEDS: CYANOCOBALAMIN INJ 1,000 MCG/ML VIAL IM SCH (09:48)
[2017-12-27] MEDS: ALLOPURINOL 100 MG TAB PO SCH ×2 (09:48→17:37)
[2017-12-27] MEDS: FLUOXETINE HCL 20 MG CAP PO SCH (09:48)
[2017-12-27] MEDS: MAGNESIUM OXIDE 400 MG TAB PO SCH (09:48)
[2017-12-27] MEDS: INSULIN DETEMIR 100 UNIT/ML PEN SQ SCH (20:55)
[2017-12-27] MEDS: QUETIAPINE FUMARATE 25 MG TAB PO SCH (22:25)
[2017-12-28] VITALS (8 sets, daily range): BP systolic 108–137; BP diastolic 56–82
[2017-12-28] MEDS: ALBUTEROL SULF 0.083% NEB SOLN 3 ML NEB NEB SCH ×4 (01:00→19:40)
[2017-12-28] MEDS: INSULIN LISPRO 100 UNIT/1 ML 3ML VIAL SQ SCH ×4 (07:30→21:41)
[2017-12-28] MEDS: FLUOXETINE HCL 20 MG CAP PO SCH (08:41)
[2017-12-28] MEDS: PROPRANOLOL HCL 40 MG TAB PO SCH (08:41)
[2017-12-28] MEDS: CYANOCOBALAMIN INJ 1,000 MCG/ML VIAL IM SCH (08:41)
[2017-12-28] MEDS: MAGNESIUM OXIDE 400 MG TAB PO SCH (08:41)
[2017-12-28] MEDS: ALLOPURINOL 100 MG TAB PO SCH ×2 (08:41→16:52)
[2017-12-28] MEDS: CEFEPIME HCL 1 GM VIAL IV SCH ×2 (09:48→21:41)
[2017-12-28] MEDS: QUETIAPINE FUMARATE 25 MG TAB PO SCH (21:41)
[2017-12-28] MEDS: INSULIN DETEMIR 100 UNIT/ML PEN SQ SCH (21:41)
[2017-12-29] VITALS: BP 124/58
[2017-12-29] MEDS: ALBUTEROL SULF 0.083% NEB SOLN 3 ML NEB NEB SCH ×2 (01:10→07:06)
[2017-12-29 04:00] VITALS: BP 122/58
[2017-12-29 08:11] VITALS: BP 119/58
[2017-12-29] MEDS: CYANOCOBALAMIN INJ 1,000 MCG/ML VIAL IM SCH (08:56)
[2017-12-29] MEDS: FLUOXETINE HCL 20 MG CAP PO SCH (08:57)
[2017-12-29] MEDS: MAGNESIUM OXIDE 400 MG TAB PO SCH (08:57)
[2017-12-29] MEDS: ALLOPURINOL 100 MG TAB PO SCH (08:57)
[2017-12-29] MEDS: PROPRANOLOL HCL 40 MG TAB PO SCH (08:57)
[2017-12-29] MEDS: INSULIN LISPRO 100 UNIT/1 ML 3ML VIAL SQ SCH (08:58)
[2017-12-29] MEDS: CEFEPIME HCL 1 GM VIAL IV SCH (09:15)
[2017-12-29 10:12] VITALS: BP 119/58
--- NOTE | 2017-12-29 15:39 | Discharge Summary ---
CONSULTANTS: Dr. Venita Gutierrez, Dr. Phu hSeppard and Dr. Jonah Cox. FINAL DIAGNOSES: 1. Urinary retention associated with a urinary tract infection, associated with altered mental status, delirium with hallucinations. 2. Workup for recurrent malignancy was negative with MRI of the abdomen and MRI of the brain. 3. Baseline obstructive sleep apnea. The patient will follow up with Dr. Jonah Cox. 4. Baseline oxygen dependency. 5. Chronic kidney disease stage 3, history of renal cell cancer with complete left nephrectomy and partial right nephrectomy. SUMMARY: Patient is a 62-year-old female with 3 ER visits total for altered mental status. Patient was placed on antibiotics as an outpatient as a trial for possible urinary bladder infection. Subsequently, she was persistently having problem with hallucination. Patient only took the medication for 2 days. Patient basically came in with encephalopathic hallucinations and agitated. It was found out that the patient had urinary retention with neurogenic urinary bladder mostly. Alex catheter placed and greater than a liter of urine was obtained. After that the patient was continued to be treated with cefepime 1 gram q.12. She is doing much better now. Her mental status completely back to baseline. She does require oxygen at baseline. She does have obstructive apnea, but this may not be an issue which caused the patient to have confusion, but may be contributing to her off and on chronic hypoxia. The patient is stable. She is doing much better now. Consultation with Dr. Phu Sheppard obtained. Alex catheter recommended for the patient to continue. Patient will need to have urodynamic study as an outpatient or further follow up as an outpatient with Dr. Phu Sheppard for management. She does have urinary incontinence with prolapse of urinary bladder. At this time, she is stable. Urine culture was negative due to already initiated on antibiotics as an outpatient prior to this admission. Workup with neurologist, Dr. Venita Gutierrez without any concrete contribution through the patient's neurological standpoint. At this time, she is stable. She will go home today. Adjustment of home medication is made. She will take Ceftin 500 mg twice a day for 10 days. B12 1000 mcg sublingual daily. The patient will resume her home medications with some adjustment. She will follow up as an outpatient for further adjustment if needed. She will go home with a Alex catheter today. Job#: [id number] SERGE
--- NOTE | 2018-01-03 12:01 | Electroencephalogram ---
DATE OF STUDY: 12/25/2017 PROCEDURE: Electroencephalogram. REQUESTING PHYSICIAN: Dr. Venita Gutierrez PATIENT HISTORY: This 62-year-old woman with a history of encephalopathy, visual hallucinations and delirium is having an EEG for evaluation of epileptiform activity. The patient is not taking any medications that might affect the EEG. TECHNIQUE: This is a routine, portable EEG, recorded digitally, using the international 10/20 electrode placement system, and done in the inpatient setting with the patient awake and asleep. The EEG is technically limited because of muscle and electrical artifact. DESCRIPTION: Well-organized, well-sustained 6-7 Hertz activity is best seen symmetrically in the posterior head regions. No focal or epileptiform activity is recorded. Stage 1 sleep is recorded with vertex waves and K-complexes. Photic stimulation does not produce a driving response. Hyperventilation is not performed. INTERPRETATION: This is an abnormal electroencephalogram with the patient awake and drowsy due to diffuse slowing of the background electrocortical activity compatible with mild, generalized encephalopathy. Clinical correlation is recommended. Job#: [id number] BEATRIS SHAH
== END 2017-12-29 11:55 | disposition home or self-care (01) | DRG 689 ==
LOC: ER 15:00 → ERHOLD 17:52 → IMCU 21:27 → MED/SURG 12-24 12:22 → OBSVTOIN 12-25 09:35
PROVIDERS: ADMIT Internal Medicine; ATTEND Internal Medicine
DX: N39.0 Urinary tract infection, site not specified (principal); G93.41 Metabolic encephalopathy; N17.9 Acute kidney failure, unspecified; F33.1 Major depressive disorder, recurrent, moderate; Z68.41 Body mass index [BMI] 40.0-44.9, adult; I13.10 Hypertensive heart and chronic kidney disease without heart failure, with stage 1 through stage 4 chronic kidney disease, or unspecified chronic kidney disease; G47.33 Obstructive sleep apnea (adult) (pediatric); M19.90 Unspecified osteoarthritis, unspecified site; J44.9 Chronic obstructive pulmonary disease, unspecified; Z99.81 Dependence on supplemental oxygen; Z90.5 Acquired absence of kidney; E66.9 Obesity, unspecified; E11.22 Type 2 diabetes mellitus with diabetic chronic kidney disease; R44.1 Visual hallucinations; N18.3 Chronic kidney disease, stage 3 (moderate); I27.20 Pulmonary hypertension, unspecified; Z85.53 Personal history of malignant neoplasm of renal pelvis; E53.8 Deficiency of other specified B group vitamins; D64.9 Anemia, unspecified; N31.9 Neuromuscular dysfunction of bladder, unspecified; N39.498 Other specified urinary incontinence
CPT/HCPCS: 36415; 36600; 70551; 71045; 74181; 78582; 80048; 80053; 80307; 80320; 81001; 82140; 82550; 82553; 82607; 82805; 82948; 83735; 83880; 84425; 84436; 84443; 84479; 84484; 85025; 85610; 85730; 86592; 87040; 87086; 93005; 93306; 94640; 95812; 97139; 99284; A9540; A9558; G0378; J0692; J2060; J2250; J3420

== ENCOUNTER 2018-06-20 05:04 | Emergency (ER) | payer MEDICARE, OTHER ==
[~2018-06-20] VITALS: Ht 157.5 cm; Wt 98.4 kg
[~2018-06-20 05:04] MED LIST changes: +DIAZEPAM5 MG PO; +magnesium PO
[2018-06-20] MEDS ORDERED: ALBUTEROL SULF 0.083% NEB SOLN 3 ML NEB NEB STA (05:57)
[2018-06-20] MEDS ORDERED: METHYLPREDNISOLONE SOD SUCC 125 MG/2ML VIAL IV ONE (06:00)
[2018-06-20] MEDS ORDERED: IPRATROPIUM BROMIDE 0.02% 2.5 ML NEB NEB ONE (06:00)
[2018-06-20 06:23] LABS: BASOPHILS # (AUTO) 0.1 (0.0-0.1); BASOPHILS % 0.4 % (0.0-1.0); EOSINOPHILS # (AUTO) 0.1 (0.0-0.4); EOSINOPHILS % 0.5 % (0.0-6.0); HEMATOCRIT 32.7 % (34.2-44.1); HEMOGLOBIN 10.2 g/dL (12.0-16.0); LYMPHOCYTES # (AUTO) 0.9 (1.0-3.2); LYMPHOCYTES % 6.7 % (18.0-39.1); MEAN CORPUSCULAR HEMOGLOBIN 27.2 pg (28-32); MEAN CORPUSCULAR HGB CONC 31.2 g/dL (31-35); MEAN CORPUSCULAR VOLUME 87.2 fL (81-99); MONOCYTES # (AUTO) 0.8 (0.2-0.8); MONOCYTES % 5.6 % (4.4-11.3); NEUTROPHILS # (AUTO) 11.6 (2.1-6.9); NEUTROPHILS % 85.8 % (38.7-80.0); PLATELET COUNT 217 x10e3/uL (140-360); RED BLOOD COUNT 3.75 x10e6/uL (3.6-5.1); RED CELL DISTRIBUTION WIDTH 13.8 % (11.7-14.4)
[2018-06-20] MEDS ORDERED: MYRBETRIQ50 MG PO (06:30)
[2018-06-20] MEDS ORDERED: AMOX TR-K CLV1 EAC2 PO (06:30)
[2018-06-20] MEDS ORDERED: VITAMIN B-121000 MCG PO (06:30)
[2018-06-20] MEDS ORDERED: BUPROPION HCL150 M2 PO (06:30)
[2018-06-20] MEDS ORDERED: AMLODIPINE BESY10 MG PO (06:30)
[2018-06-20] MEDS ORDERED: DULERA 100 MCG/13 GM INH (06:30)
[2018-06-20 06:36] LABS: BILIRUBIN,URINE NEGATIVE (NEGATIVE); CLARITY,URINE HAZY (CLEAR); COLOR,URINE YELLOW (YELLOW); KETONES,URINE NEGATIVE (NEGATIVE); LEUKOCYTE ESTERASE ,URINE NEGATIVE (NEGATIVE); NITRITE,URINE NEGATIVE (NEGATIVE); PROTEIN,URINE DIPSTICK 1+ (NEGATIVE); URINE UROBILINOGEN 0.2 mg/dL (0.2 - 1)
[2018-06-20 06:39] LABS: ALBUMIN/GLOBULIN RATIO 0.7 (0.8-2.0); ANION GAP 17.9 mmol/L (8-16); CALCIUM 9.9 mg/dL (8.4-10.2); CREATININE, SERUM 2.2 mg/dL (0.57-1.11); POTASSIUM 3.9 mmol/L (3.5-5.1)
[2018-06-20 06:43] LABS: BACTERIA,URINE FEW /HPF; EPITHELIAL CELLS,URINE FEW /LPF; RBC,URINE 0-5 /HPF (0-5); WBC,URINE (MAN) 0-5 /HPF (0-5)
[2018-06-20 06:44] LABS: AMORPHOUS SEDIMENT,URINE MODERATE (FEW); MUCUS,URINE FEW (RARE)
[2018-06-20 06:45] LABS: CREATINE KINASE MB 0.5 ng/mL (0-5.0)
--- NOTE | 2018-06-20 07:49 | Diagnostic Imaging Report ---
EXAMINATION: CHEST SINGLE (PORTABLE) COMPARISON: Chest radiograph 09/16/2016. FINDINGS: TUBES and LINES: None. LUNGS: There are asymmetric interstitial opacities, right greater than left. Patchy opacities at the lung bases, right greater than left. PLEURA: Small right pleural effusion. HEART AND MEDIASTINUM: Mildly enlarged cardio mediastinal silhouette. BONES AND SOFT TISSUES: No acute osseous lesion. Soft tissues are unremarkable. UPPER ABDOMEN: No free air under the diaphragm. IMPRESSION: Patchy interstitial opacities, asymmetric to the right with associated small right pleural effusion which may reflect asymmetric edema in the setting of cardiomegaly. Patchy pneumonia is an additional consideration. Signed by: Dr. Aden Alfred MD on 06/20/2018 7:45 AM
--- NOTE | 2018-06-20 08:27 | Diagnostic Imaging Report ---
Exam: Head CT without contrast History: Confusion, hallucinations, history of breast and renal cancer. Comparison studies: Brain MRI 12/26/[address] 12/20/2017. Technique: Axial images were obtained from the skull base to the vertex. Coronal and sagittal images reconstructed from the axial data. Dose modulation, iterative reconstruction, and/or weight based adjustment of the mA/kV was utilized to reduce the radiation dose to as low as reasonably achievable. Radiation dose: Total DLP: 921 mGy*cm. Estimated effective dose: DLP x 0.015 Intravenous contrast: None Findings: Scalp: No abnormalities. Bones: No fractures. Unchanged nonaggressive-appearing 5 mm sclerotic lesion in the left sphenoid wing. A few scattered nonspecific small lytic foci in the are unchanged from the prior head CT of 12/20/2012. Largest in the left parietal li measures 10 mm. Brain sulci: Frontal sulci and sylvian fissures are mildly prominent. Remaining sulci are within normal limits for age. Ventricles: Normal in size and configuration. No hydrocephalus. Extra-axial spaces: No masses, no fluid collection. Parenchyma: No mass, acute hemorrhage or acute or chronic cortical vascular infarcts. Ill-defined confluent hypodensities in the supratentorial white matter nonspecific most compatible with chronic microvascular ischemic changes. Please note, evaluation for small metastatic lesions is limited by CT and by the absence of IV contrast. Sellar/suprasellar region: No abnormalities. Craniocervical junction: Patent foramen magnum. No Chiari one malformation. Clear paranasal sinuses: Nonspecific inflammatory mucosal thickening in the left maxillary sinus. The left sphenoid sinus is partially opacified. Included remaining sinuses are clear. Additional findings: Nonspecific left middle ear and mastoid opacification. Incidental findings: Atherosclerotic calcifications in the carotid siphons. IMPRESSION: 1. No acute intracranial abnormalities. 2. Nonspecific left middle ear and mastoid opacification. 3. Left maxillary and sphenoid sinus inflammatory changes. 4. Unchanged mild bifrontal volume loss and moderate chronic microvascular ischemic changes. Signed by: Dr. Vineet King M.D. on 06/20/2018 8:24 AM
[2018-06-20 08:44] LABS: ABG HCO3 29 mmol/L (23-28); ABG PCO2 52 mmHg (41-51); ABG PH 7.36 (7.31-7.41); ABG PO2 60 mmHg (80-105)
[2018-06-20] MEDS ORDERED: AZITHROMYCIN 500MG/NS 250 ML 250 ML IV NR (08:47)
[2018-06-20] MEDS ORDERED: CEFTRIAXONE SOD 1 GM VIAL IV ONE (09:00)
[2018-06-20] MEDS ORDERED: CEFTRIAXONE SOD 1 GM/NS 50 ML 50 ML IV SCH (09:00)
--- NOTE | 2018-06-20 09:20 | NUR ---
SPOKE WITH DUNCAN AT [facility] TO INITIATE TRANSFER TO [facility].
[2018-06-20] MEDS ORDERED: INSULIN LISPRO 100 UNIT/1 ML 3ML VIAL SQ NR (12:05)
--- NOTE | 2018-06-20 14:12 | NUR ---
REPORT TO [facility], PATIENT BEING TRASPORTED TO [facility]
== END 2018-06-20 14:19 | disposition other institution (70) ==
LOC: ER 05:04
DX: R41.0 Disorientation, unspecified (principal); R44.3 Hallucinations, unspecified; R09.02 Hypoxemia; J18.9 Pneumonia, unspecified organism; I12.0 Hypertensive chronic kidney disease with stage 5 chronic kidney disease or end stage renal disease; E11.22 Type 2 diabetes mellitus with diabetic chronic kidney disease; N18.6 End stage renal disease; Z85.3 Personal history of malignant neoplasm of breast; Z85.53 Personal history of malignant neoplasm of renal pelvis
CPT/HCPCS: 36415; 36600; 51700; 70450; 71045; 80053; 81001; 82550; 82553; 82805; 82948; 83605; 84484; 85025; 87040; 87086; 93005; 94640; 99285; J0456; J0696; J2930